=== PATIENT | male | born 1975 | race Caucasian/White ===

== ENCOUNTER 2024-06-24 18:20 | Emergency (ER) | payer BC, SELFPAY ==
--- NOTE | 2024-06-24 18:54 | EDPHYS ---
Physician Documentation [facility] Name: Jose Reyes Age: 48 yrs Sex: Male : 1975 Arrival Date: 06/24/2024 Time: 18:20 Bed 20 Private MD: None, None ED Physician Alfred Duncan HPI: 06/24 18:58 This 48 yrs old Male presents to ER via Ambulatory with complaints of Rectal ec2 Pain - prolapse. 18:58 Patient arrives today due to concern for masses on his rectum. Reports pain. History of ec2 rectal prolapse x 1 several years ago. Did have some rectal bleeding yesterday.. Historical: - Allergies: 18:42 No Known Allergies; iw - Home Meds: 18:42 None [Active]; iw - PMHx: 18:42 None; iw - PSHx: 18:42 None; iw - Immunization history:: Adult Immunizations not up to date. - Infectious Disease History:: Denies. - Social history:: Smoking status: Patient denies any tobacco usage or history of. Patient uses street drugs, marijuana. ROS: 18:58 Constitutional: as per hpi ec2 Exam: 18:58 Constitutional: GEN: NAD Head: atraumatic Eyes: EOMI Ears: External ears are ec2 normal. CV: regular rate LUNGS: no respiratory distress ABD: non-distended. : Performed under nurse supervision, KYLEIGH Jung, for nonthrombosed hemorrhoids present SKIN: no evidence of rashes MSK: no evidence of trauma Vital Signs: 18:40 BP 132 / 86; Pulse 65; Resp 16; Temp 97.4; Pulse Ox 100% on R/A; Weight 79.38 kg; iw Height 5 ft. 11 in. ; Pain 7/10; 18:40 Body Mass Index 24.41 (79.38 kg, 180.34 cm) iw 18:40 Pain Scale: Adult iw MDM: 18:48 Medical Screening Exam initiated ec2 18:58 Data reviewed: vital signs, nurses notes. ED course: Patient arrives today for ec2 evaluation of rectal mass. Examination yields hemorrhoids x 4. Will give the patient topical lidocaine and instructed hydrocortisone and fiber intake. Return precautions given. Differential diagnosis considered include process such as hemorrhoids, rectal prolapse, abscess.. Administered Medications: 19:06 Drug: Lidocaine Mucous Membrane Gel 2 % 1 ea 15 ml Mucous Membrane once {Note: applied jb4 by the pt per pt request.} Volume: 15 ml; Route: Mucous Membrane; 19:06 Follow up: Response: Medication administered at discharge. jb4 Disposition Summary: 06/24/24 18:54 Discharge Ordered Notes: Location: Home ec2 Condition: Stable ec2 Diagnosis - Unspecified hemorrhoids ec2 Followup: ec2 - With: Private Physician - When: - Reason: Re-evaluation by your physician Discharge Instructions: - Discharge Summary Sheet ec2 - Hemorrhoids ec2 Forms: - Medication Reconciliation Form ec2 - Antibiotic Education ec2 - Prescription Opioid Use ec2 - Patient Portal Instructions ec2 - Leadership Thank You Letter ec2 Prescriptions: - hydrocortisone acetate 25 mg Rectal suppository - insert 1 suppository RECTAL route 1 to 2 times per day as needed for ec2 hemorrhoids; 10 suppository; Refills: 0, Product Selection Permitted - lidocaine HCl 4 % (40 mg/mL) subgingival-local solution - apply 5 milliliter TOPICAL route every 12 hours as needed for pain; 100 ec2 milliliter; Refills: 0, Product Selection Permitted Signatures: Nisha Ruiz RN RN iw Russel Jenkins RN RN jb4 Alfred Duncan MD MD ec2 Corrections: (The following items were deleted from the chart) 18:59 18:58 Patient arrives today due to concern for masses on his rectum. Reports pain. ec2 History of rectal prolapse x 1 several years ago.. ec2
--- NOTE | 2024-06-24 18:54 | ER ---
Nurse's Notes [facility] Name: Jose Reyes Age: 48 yrs Sex: Male : 1975 Arrival Date: 06/24/2024 Time: 18:20 Bed 20 Private MD: None, None Diagnosis: Unspecified hemorrhoids Presentation: 06/24 18:40 Chief complaint: Patient states: woke up with a prolapsed rectum, I was drinking and iw think I ate something bad last night and I had diarrhea. Coronavirus screen: At this time, the client does not indicate any symptoms associated with coronavirus-19. Ebola Screen: No symptoms or risks identified at this time. Initial Sepsis Screen: Does the patient meet any 2 criteria? No. Patient's initial sepsis screen is negative. Does the patient have a suspected source of infection? No. Patient's initial sepsis screen is negative. Risk Assessment: Do you want to hurt yourself or someone else? Patient reports no desire to harm self or others. Onset of symptoms was June 24, 2024. 18:40 Method Of Arrival: Ambulatory iw 18:40 Acuity: CORNELIO 3 iw Historical: - Allergies: 18:42 No Known Allergies; iw - Home Meds: 18:42 None [Active]; iw - PMHx: 18:42 None; iw - PSHx: 18:42 None; iw - Immunization history:: Adult Immunizations not up to date. - Infectious Disease History:: Denies. - Social history:: Smoking status: Patient denies any tobacco usage or history of. Patient uses street drugs, marijuana. Screenin:01 [facility] ED Fall Risk Assessment (Adult) History of falling in the last 3 months, cm10 including since admission No falls in past 3 months (0 pts) Confusion or Disorientation No (0 pts) Intoxicated or Sedated No (0 pts) Impaired Gait No (0 pts) Mobility Assist Device Used No (0 pt) Altered Elimination No (0 pt) Score/Fall Risk Level 0 - 2 = Low Risk Oriented to surroundings, Maintained a safe environment, Hourly rounding (assess needs \T\ fall precautionary measures) done. Abuse screen: Denies threats or abuse. Denies injuries from another. Nutritional screening: No deficits noted. Tuberculosis screening: No symptoms or risk factors identified. Assessment: 19:01 General: Appears in no apparent distress. uncomfortable, Behavior is calm, cooperative, cm10 appropriate for age. Pain: Complains of pain in Rectum. Respiratory: No deficits noted. Airway is patent Respiratory effort is even, unlabored, Respiratory pattern is regular, symmetrical. GI: Rectal exam: Hemorrhoids noted. Vital Signs: 18:40 BP 132 / 86; Pulse 65; Resp 16; Temp 97.4; Pulse Ox 100% on R/A; Weight 79.38 kg; iw Height 5 ft. 11 in. ; Pain 7/10; 18:40 Body Mass Index 24.41 (79.38 kg, 180.34 cm) iw 18:40 Pain Scale: Adult iw ED Course: 18:23 Patient arrived in ED. as 18:24 None, None is Private Physician. as 18:25 Alfred Duncan MD is Attending Physician. ec2 18:42 Triage completed. iw 18:43 Arm band placed on. iw 18:51 Fabiana Cota RN is Primary Nurse. cm10 18:52 Served as a casing in line feeder during rectal exam. cm10 19:01 Patient has correct armband on for positive identification. Provided Education on: cm10 Follow-up instructions. 19:01 Patient did not have IV access during this emergency room visit. cm10 Administered Medications: 19:06 Drug: Lidocaine Mucous Membrane Gel 2 % 1 ea 15 ml Mucous Membrane once {Note: applied jb4 by the pt per pt request.} Volume: 15 ml; Route: Mucous Membrane; 19:06 Follow up: Response: Medication administered at discharge. jb4 Medication: 19:01 VIS not applicable for this client. cm10 Outcome: 18:54 Discharge ordered by . ec2 19:14 Discharged to home ambulatory, jb4 19:14 Condition: stable 19:14 Discharge instructions given to patient, Instructed on discharge instructions, follow up and referral plans. medication usage, Demonstrated understanding of instructions, follow-up care, medications, Prescriptions given X 2, 19:14 Patient left the ED. jb4 Signatures: Rebecca Cota Irene, RN RN Russel Jenkins RN RN jb4 Fabiana Cota, KYLEIGH ARIZMENDI cm10 Alfred Duncan MD MD ec2
[2024-06-24] MEDS ORDERED: LIDOCAINE HCL JELLY 2% 6 ML SYRINGE TOP ONE (18:56)
[2024-06-24 19:19] VITALS: BP 132/86; TEMP 97.4; O2SAT 100
== END 2024-06-24 19:14 | disposition home or self-care (01) ==
LOC: ER 18:20
DX: K64.9 Unspecified hemorrhoids (principal)
CPT/HCPCS: 99283

== ENCOUNTER 2024-07-09 08:02 | Emergency (ER) | payer BC ==
[2024-07-09 08:36] LABS: Specific Gravity 1.007 (1.005-1.030); Sqamous Epithelial None Seen /HPF (None Seen); Urine Bacteria None Seen /HPF (<20); Urine Bilirubin NEGATIVE (Negative); Urine Blood Negative (Negative); Urine Clarity Clear (Clear); Urine Color Light-Yellow (Yellow); Urine Culture Reflex Order NOT NEEDED; Urine Glucose NEGATIVE (Negative); Urine Ketones NEGATIVE (Negative); Urine Microscopic Reflex YN ORDER UMIC; Urine Nitrite NEGATIVE (Negative); Urine Protein NEGATIVE (Negative); Urine RBC <5 /HPF (None Seen); Urine Urobilinogen Normal (Normal); Urine WBC <5 /HPF (<5)
[2024-07-09 08:54] LABS: Absolute Eosinophils 0.1 K/uL (0-0.5); Absolute Lymphocytes (CBC) 0.9 K/uL (0.7-4.9); Absolute Monocytes 0.6 K/uL (0.1-1.3); Absolute Neutrophil 5.8 K/uL (1.8-8.0); Basophils % 0.5 % (0-1.3); Eosinophils % 0.9 % (0-4.4); Hematocrit 46.7 % (39.6-49.0); Hemoglobin 15.7 g/dL (13.6-17.9); Lymphocytes % 11.8 % (15.3-44.8); MCH 32.7 pg (27.0-35.0); MCHC 33.6 g/dL (32.0-36.0); MCV 97.4 fL (80-100); MPV 8.3 fL (7.6-11.3); Monocytes % 7.7 % (3.3-12.3); Neutrophils % 79.1 % (41.7-73.7); Nucleated Red Blood Cells % 0.1 % (0-0); Platelets 316 thou/uL (152-406); Red Cell Distribution Width 14.1 % (12.1-15.2)
[2024-07-09 09:10] LABS: Albumin 3.4 g/dL (3.4-5.0); Albumin/Globulin Ratio 0.8 (1.1-1.8); Anion Gap 7.8 mEq/L (5.0-15.0); Bilirubin Total 0.5 mg/dL (0.2-1.0); Globulin 4.3 g/dL (2.3-3.5); Potassium 4.8 mEq/L (3.5-5.1); Protein, Total 7.7 g/dL (6.4-8.2)
--- NOTE | 2024-07-09 09:56 | RAD REPORT ---
EXAMINATION: CT Abdomen Pelvis W Contrast CLINICAL INDICATION: Male, 48 years old. rectal pressure, dysuria TECHNIQUE: CT abdomen and pelvis was performed, after the administration of IV contrast, as per [facility]. Axial, sagittal and coronal reconstructions were obtained. One or more of the following dose reduction techniques were used: Automated exposure control, adjustment of the mA and k V according to patient size, and iterative reconstruction. Unless otherwise specified, incidental findings do not require dedicated imaging follow-up. COMPARISON: 11/21/2013 FINDINGS: LOWER CHEST: The visualized lung bases are clear. LIVER: Normal in size and contour. No focal lesion. BILIARY SYSTEM: No suspicious abnormalities. SPLEEN: Normal size. No focal lesion. PANCREAS: No mass, ductal dilation, or tatiana-pancreatic fluid. Incidentally noted pancreatic head 8 mm cystic lesion. ADRENALS: Normal; no mass. KIDNEYS: Normal size and contour. No hydronephrosis. URINARY BLADDER: Unremarkable. GASTROINTESTINAL TRACT: No evidence of free air, significant intra-abdominal free fluid, bowel obstru ction or abscess. APPENDIX: Normal appendix. LYMPH NODES: No lymphadenopathy. MUSCULOSKELETAL: No acute or suspicious osseous abnormality. ADDITIONAL FINDINGS: Fat stranding involving the seminal vesicles. Mild fat stranding along the dista l ureters as well. IMPRESSION: Fat stranding involving the seminal vesicles as well as the distal aspects of the ureters, nonspecifi c, but suggests sequelae of an infectious or inflammatory process. Centrally noted 8 mm pancreatic head cystic lesion. According to ACR white paper and recommendations (Ezraow et al 2017), follow-up imaging in 12 months is recommended to ensure stability.
[2024-07-09] MEDS ORDERED: levoFLOXacin 250 MG TAB ONE (10:07)
--- NOTE | 2024-07-09 10:47 | EDPHYS ---
Physician Documentation [facility] Name: Jose Reyes Age: 48 yrs Sex: Male : 1975 Arrival Date: 07/09/2024 Time: 08:02 Bed 4 Private MD: ED Physician Wilson Godinez HPI: 07/09 09:01 This 48 yrs old Male presents to ER via Ambulatory with complaints of Urinary Problem - rn Burning sensation. 09:01 The patient presents with urinary symptoms, dysuria. Onset: The symptoms/episode rn began/occurred 1 week(s) ago. Modifying factors: The symptoms are alleviated by nothing, the symptoms are aggravated by urinating. Severity of symptoms: At their worst the symptoms were mild, in the emergency department the symptoms are unchanged. The patient has not experienced similar symptoms in the past. Patient reports dysuria and rectal pressure when urinating for the last 1 week. No fever or chills. Was diagnosed with hemorrhoids a few weeks ago. Reports intermittent bleeding from hemorrhoids history of kidney and not mixed with stool. Reports pelvic pressure but no abdominal pain. No vomiting or diarrhea. No weight loss.. Historical: - Allergies: 08:11 No Known Allergies; ss - Immunization history:: Adult Immunizations up to date. - Infectious Disease History:: Denies. - Family history:: not pertinent. - Social history:: Smoking status: Patient denies any tobacco usage or history of. - Hospitalizations: : No recent hospitalization is reported. ROS: 09:01 Constitutional: Negative for fever, chills, and weight loss, Cardiovascular: Negative rn for chest pain, palpitations, and edema, Respiratory: Negative for shortness of breath, cough, wheezing, and pleuritic chest pain, Abdomen/GI: Positive for pelvic pressure, negative for abdominal pain or vomiting Back: Negative for injury and pain, : Positive for dysuria MS/Extremity: Negative for injury and deformity, Neuro: Negative for headache, weakness, numbness, tingling, and seizure, Exam: 09:01 Constitutional: This is a well developed, well nourished patient who is awake, alert, rn and in no acute distress. Ambulatory to room without difficulty or assistance Cardiovascular: Regular rate and rhythm. No pulse deficits. Respiratory: No increased work of breathing, no retractions or nasal flaring. Abdomen/GI: Soft, non-tender MS/ Extremity: Pulses equal, no cyanosis. Neuro: Awake and alert, GCS 15 Vital Signs: 08:17 BP 151 / 99; Pulse 93; Resp 17; Pulse Ox 99% ; ss 09:01 BP 130 / 83; Pulse 78; Resp 16; Pulse Ox 100% ; bp 09:07 Temp 98.7; Weight 77.56 kg; Height 5 ft. 11 in. ; Pain 3/10; ss 10:12 BP 107 / 63; Pulse 72; Resp 16 S; Pulse Ox 100% on R/A; kc6 11:09 BP 119 / 70; Pulse 75; Resp 15 S; Pulse Ox 98% on R/A; kc6 09:07 Body Mass Index 23.85 (77.56 kg, 180.34 cm) ss 09:07 Pain Scale: Adult ss MDM: 08:06 Medical Screening Exam initiated rn 10:45 Differential diagnosis: UTI, prostatitis, urethritis, Orchitis, epididymitis. Data rn reviewed: vital signs, nurses notes, lab test result(s), radiologic studies, CT scan, and as a result, I will discharge patient. Counseling: I had a detailed discussion with the patient and/or guardian regarding the historical points, exam findings, and any diagnostic results supporting the discharge/admit diagnosis, lab results, radiology results, the need for outpatient follow up, to return to the emergency department if symptoms worsen or persist or if there are any questions or concerns that arise at home. Special discussion: I discussed with the patient/guardian in detail that at this point there is no indication for admission to the hospital. It is understood, however, that if the symptoms persist or worsen the patient needs to return immediately for re-evaluation. ED course: CT shows possible infection/inflammation of seminal vesicles and urinary tract system. Will discharge home with antibiotics and return precautions.. 07/09 08:09 Order name: Urinalysis w/ reflexes; Complete Time: 08:38 rn 07/09 08:39 Order name: CBC with Diff; Complete Time: 09:31 rn 07/09 08:39 Order name: CMP; Complete Time: 09:31 rn 07/09 08:39 Order name: CT Abd/Pelvis - IV Contrast Only; Complete Time: 10:02 rn 07/09 08:39 Order name: IV Saline Lock; Complete Time: 08:46 rn 01/09 08:39 Order name: Labs collected and sent; Complete Time: 08:46 rn Administered Medications: 10:11 Drug: LevOfloxacin PO 500 mg PO once Route: PO; kc6 11:09 Follow up: Response: No adverse reaction kc6 Disposition Summary: 07/09/24 10:46 Discharge Ordered Notes: Location: Home rn Problem: new rn Symptoms: have improved rn Condition: Stable rn Diagnosis - Inflammatory disorders of seminal vesicle rn - UTI/ Urinary tract infection, site not specified rn Followup: rn - With: Esteban Moore MD - When: As needed - Reason: Recheck today's complaints, Re-evaluation by your physician Discharge Instructions: - Discharge Summary Sheet rn - Urinary Tract Infection, Adult rn Forms: - Medication Reconciliation Form rn - Antibiotic television journalist - Prescription Opioid Use rn - Patient Portal Instructions rn - Leadership Thank You Letter rn Prescriptions: - levofloxacin 500 mg Oral tablet - take 1 tablet ORAL route once daily for 14 days; 14 tablet; Refills: 0, Product rn Selection Permitted Signatures: Dispatcher [employer] EDMS Wilson Godinez MD MD rn Blanchard, Shelby, RN RN Reagan Sauceda RN RN bp Campbell, Kaitlyn, RN RN kc6 Corrections: (The following items were deleted from the chart) 08:39 08:39 CBC+H.LAB.BRZ ordered. EDMS EDMS 08:39 08:39 COMPREHENSIVE METABOLIC PANEL+C.LAB.BRZ ordered. EDMS EDMS 08:39 08:39 Abdomen Pelvis W Con+CT.RAD.BRZ ordered. EDMS EDMS
--- NOTE | 2024-07-09 10:47 | ER ---
Nurse's Notes [facility] Name: Jose Reyes Age: 48 yrs Sex: Male : 1975 Arrival Date: 07/09/2024 Time: 08:02 Bed 4 Private MD: Diagnosis: Inflammatory disorders of seminal vesicle;UTI/ Urinary tract infection, site not specified Presentation: 07/09 08:10 Chief complaint: Patient states: Intermittent burning with urination x 1 week. Pt ss reports he has been having rectal pain as well since his diagnosis of hemorrhoids on 06/24. Coronavirus screen: Client denies travel out of the [place] in the last 14 days. Ebola Screen: Patient denies exposure to infectious person. Patient denies travel to an Ebola-affected area in the 21 days before illness onset. Initial Sepsis Screen: Does the patient meet any 2 criteria? No. Patient's initial sepsis screen is negative. Does the patient have a suspected source of infection? No. Patient's initial sepsis screen is negative. Risk Assessment: Do you want to hurt yourself or someone else? Patient reports no desire to harm self or others. Onset of symptoms was July 02, 2024. 08:10 Method Of Arrival: Ambulatory ss 08:10 Acuity: CORNELIO 3 ss Triage Assessment: 08:10 General: Appears in no apparent distress. Behavior is cooperative, appropriate for age, bp anxious. Pain: Complains of pain in pelvis. EENT: No deficits noted. Neuro: No deficits noted. Cardiovascular: No deficits noted. Respiratory: No deficits noted. GI: No signs and/or symptoms were reported involving the gastrointestinal system. : Reports burning with urination. Derm: No deficits noted. Musculoskeletal: No deficits noted. Historical: - Allergies: 08:11 No Known Allergies; ss - Immunization history:: Adult Immunizations up to date. - Infectious Disease History:: Denies. - Family history:: not pertinent. - Social history:: Smoking status: Patient denies any tobacco usage or history of. - Hospitalizations: : No recent hospitalization is reported. Screenin:10 [facility] ED Fall Risk Assessment (Adult) History of falling in the last 3 months, bp including since admission No falls in past 3 months (0 pts) Confusion or Disorientation No (0 pts) Intoxicated or Sedated No (0 pts) Impaired Gait No (0 pts) Mobility Assist Device Used No (0 pt) Altered Elimination No (0 pt) Score/Fall Risk Level 0 - 2 = Low Risk Oriented to surroundings. Abuse screen: Denies threats or abuse. Denies injuries from another. Nutritional screening: No deficits noted. Tuberculosis screening: No symptoms or risk factors identified. Assessment: 08:10 General: Appears in no apparent distress. Behavior is cooperative, appropriate for age, bp anxious. Pain: Complains of pain in pelvis. 08:59 Reassessment: PT RETURNED FROM CT. bp 10:11 Reassessment: Patient appears in no apparent distress at this time. No changes from kc6 previously documented assessment. Patient and/or family updated on plan of care and expected duration. Pain level reassessed. Patient is alert, oriented x 3, equal unlabored respirations, skin warm/dry/pink. 11:09 Reassessment: Patient appears in no apparent distress at this time. No changes from kc6 previously documented assessment. Patient and/or family updated on plan of care and expected duration. Pain level reassessed. Patient is alert, oriented x 3, equal unlabored respirations, skin warm/dry/pink. Vital Signs: 08:17 BP 151 / 99; Pulse 93; Resp 17; Pulse Ox 99% ; ss 09:01 BP 130 / 83; Pulse 78; Resp 16; Pulse Ox 100% ; bp 09:07 Temp 98.7; Weight 77.56 kg; Height 5 ft. 11 in. ; Pain 3/10; ss 10:12 BP 107 / 63; Pulse 72; Resp 16 S; Pulse Ox 100% on R/A; kc6 11:09 BP 119 / 70; Pulse 75; Resp 15 S; Pulse Ox 98% on R/A; kc6 09:07 Body Mass Index 23.85 (77.56 kg, 180.34 cm) ss 09:07 Pain Scale: Adult ss ED Course: 08:04 Patient arrived in ED. ra3 08:05 Reagan Sheth, KYLEIGH is Primary Nurse. bp 08:06 Wilson Godinez MD is Attending Physician. rn 08:10 Patient has correct armband on for positive identification. bp 08:11 Triage completed. ss 08:11 Arm band placed on right wrist. ss 08:46 Inserted saline lock: 20 gauge in left antecubital area, using aseptic technique. Blood bp collected. Flushed with 10 mL NS. 08:59 CT Abd/Pelvis - IV Contrast Only In Process Unspecified. EDMS 10:45 Esteban Moore MD is Referral Physician. rn 11:14 No provider procedures requiring assistance completed. IV discontinued, intact, kc6 bleeding controlled, No redness/swelling at site. Pressure dressing applied. Administered Medications: 10:11 Drug: LevOfloxacin PO 500 mg PO once Route: PO; kc6 11:09 Follow up: Response: No adverse reaction kc6 Medication: 08:10 VIS not applicable for this client. bp Outcome: 10:46 Discharge ordered by MD. rn 11:14 Discharged to home ambulatory, kc6 11:14 Condition: good 11:14 Discharge instructions given to patient, Instructed on discharge instructions, follow up and referral plans. medication usage, Demonstrated understanding of instructions, follow-up care, medications, Prescriptions given X 1, 11:14 Patient left the ED. kc6 Signatures: Dispatcher [employer] EDMS Wilson Godinez MD MD rn Blanchard, Shelby, RN RN Reagan Sauceda RN RN bp Campbell, Kaitlyn, RN RN kc6 Tara Day ra3
[2024-07-09 11:24] VITALS: TEMP 98.7
[2024-07-09 11:27] VITALS: BP 119/70; O2SAT 98
== END 2024-07-09 11:14 | disposition home or self-care (01) ==
LOC: ER 08:02
DX: N39.0 Urinary tract infection, site not specified (principal); N49.0 Inflammatory disorders of seminal vesicle
CPT/HCPCS: 85025; 81001; 36415; 80053; 74177; 99284; Q9967